=== PATIENT | female | born 1980 | race African-American/Black ===

== ENCOUNTER 2021-09-06 18:30 | Emergency (ER) | payer SELFPAY ==
[~2021-09-06] VITALS: Ht 162.6 cm; Wt 56.7 kg
--- NOTE | 2021-09-06 18:45 | NUR ---
BIBS FOR C/O HEAVY MENSTURAL BLEEDING STARTED YESTERDAY. CHANGES PADS Q1HR AND STATES HAVING LARGE CLOTS. FEELS WEAK. DENIES PAIN. DENIES N/V. WILL CONTINUE TO MONITOR THE PATIENT.
--- NOTE | 2021-09-06 18:58 | NUR ---
US AT BEDSIDE, NEEDS PT WITH FULL BLADDER, WILL COLLECT URINE AFTER US
[2021-09-06] MEDS ORDERED: IV NS 0.9% 1,000 ML BAG IV ONE (19:00)
[2021-09-06 19:24] LABS: CALCIUM, SERUM 8.4 mg/dL (8.5-10.1); CREATININE 0.8 mg/dL (0.6-1.3); POTASSIUM 3.9 mmol/L (3.5-5.1)
--- NOTE | 2021-09-06 19:33 | NUR ---
URINE SAMPLE COLLECTED AND SENT TO LAB
[2021-09-06 20:11] LABS: BILIRUBIN,URINE NEGATIVE (NEGATIVE); COLOR,URINE YELLOW (YELLOW); LEUKOCYTE ESTERASE ,URINE NEGATIVE (NEGATIVE); NITRITE, URINE NEGATIVE (NEGATIVE); PROTEIN,URINE NEGATIVE (NEGATIVE); UGLUCOSE NEGATIVE (NEGATIVE); UROBILINOGEN,URINE 0.2 EU/dL (0.2)
[2021-09-06 20:19] LABS: BASOPHILS # (AUTO) 0.1 K/uL (0.0-0.2); BASOPHILS % (AUTO) 1.3 % (0.0-2.0); EOSINOPHILS % (AUTO) 5.6 % (0.0-6.0); HEMATOCRIT 25 % (33-45); HEMOGLOBIN 7.6 g/dL (11.5-14.8); LYMPHOCYTES % (AUTO) 32.3 % (20.0-44.0); MEAN CORPUSCULAR HGB CONC 31 g/dl (31.0-36.0); MEAN CORPUSCULAR VOLUME 72 fL (82-100); MONOCYTES % (AUTO) 10.4 % (2.0-12.0); NEUTROPHILS # (AUTO) 4.7 K/uL (1.8-8.9); NEUTROPHILS % (AUTO) 50.4 % (43.0-81.0); PLATELET COUNT (AUTO) 480 K/uL (150-450); RED BLOOD CELL COUNT(AUTO) 3.42 MIL/uL (4.0-5.2); WHITE BLOOD COUNT (AUTO) 9.3 K/uL (4.3-11.0)
[2021-09-06 20:34] LABS: SQUAMOUS EPITHELIAL CELL,UR Moderate /HPF (None Seen)
[2021-09-06 20:35] LABS: BACTERIA,URINE Few /HPF (None Seen)
[2021-09-06] MEDS ORDERED: MEDR10TA10 PO (21:01)
[2021-09-06] MEDS ORDERED: FERR325T23 PO (21:01)
--- NOTE | 2021-09-06 21:14 | NUR ---
Patient discharged to home in stable condition. Written and verbal after care instructions given. Patient verbalizes understanding of instruction.
--- NOTE | 2021-09-06 21:14 | NUR ---
IV removed. Catheter intact and site benign. Pressure and 4x4 applied to site. No bleeding noted.
[2021-09-06 21:15] VITALS: BP 112/71
== END 2021-09-06 21:15 | disposition home or self-care (01) ==
LOC: ER 18:30
DX: N92.0 Excessive and frequent menstruation with regular cycle (principal); N83.201 Unspecified ovarian cyst, right side; D25.9 Leiomyoma of uterus, unspecified; D50.9 Iron deficiency anemia, unspecified
CPT/HCPCS: 36415; 76856; 80048; 81001; 84703; 85025; 96360; 99284; J7030